=== PATIENT | female | born 1950 | race Caucasian/White ===

== ENCOUNTER 2021-07-15 10:39 | Inpatient (IN) | payer MEDICARE ==
[~2021-07-15] VITALS: Ht 157.5 cm; Wt 70.4 kg
[~2021-07-15 10:39] MED LIST: DEXA6TAB PO; INSU100I29 SQ; LISI10TA27 PO; NOVLG SQ
[2021-07-15] MEDS ORDERED: acetaminophen 325mg tablet PO STA (11:32)
[2021-07-15] MEDS ORDERED: ALBUTEROL INHALER 1 PUFF/90 MCG INHALER IH PRN ×2 (11:35→14:00)
[2021-07-15] MEDS ORDERED: dexamethasone inj 8 MG in normal saline 50ml IV soln 50 ML IV ONE (11:35)
[2021-07-15 11:47] LABS: BASOPHILS % (AUTO) 0.1 % (0-1); EOSINOPHILS % (AUTO) 0 % (0-6); HEMATOCRIT 41.1 % (35.0-45.0); HEMOGLOBIN 14.1 g/dl (12.0-16.0); LYMPHOCYTES # (AUTO) 0.2 X10'3 (1.1-4.8); LYMPHOCYTES % (AUTO) 1.9 % (21-51); MEAN CORPUSCULAR HGB CONC 34.4 g/dL (33.0-36.5); MONOCYTES # (AUTO) 0.4 X10'3 (0-0.9); MONOCYTES % (AUTO) 3.2 % (2-12); NEUTROPHILS % (AUTO) 94.8 % (42-75); PLATELET COUNT 339 X10'3 (140-440); RED BLOOD COUNT 4.28 X10'6 (4.20-5.60); RED CELL DISTRIBUTION WIDTH 12.6 % (11.5-14.5); WHITE BLOOD COUNT 11.6 X10'3 (4.5-11.0)
--- NOTE | 2021-07-15 11:49 | NUR ---
called pharmacy and spoke to yessica as per him its going to be 10-15 mins .will send tech in few mins.
[2021-07-15 12:01] LABS: ALANINE AMINOTRANSFERASE 28 U/L (12-78); ALBUMIN 2.7 G/DL (3.4-5.0); ALBUMIN/GLOBULIN RATIO 0.5 (1.1-1.5); ALKALINE PHOSPHATASE 82 IU/L (46-116); ANION GAP 11 (8-16); ASPARTATE AMINO TRANSFERASE 24 U/L (10-37); BILIRUBIN,TOTAL 0.7 MG/DL (0.1-1.0); BLOOD UREA NITROGEN 14 MG/DL (7-18); BUN/CREATININE RATIO 21.2 (6.6-38.0); CALCIUM 8.2 MG/DL (8.5-10.1); CHLORIDE 102 MMOL/L (99-107); CREATININE 0.66 MG/DL (0.40-0.90); GLUCOSE 268 MG/DL (70-104); POTASSIUM 4.3 MMOL/L (3.5-5.1); SODIUM 136 MMOL/L (135-145); TOTAL CARBON DIOXIDE 23.5 MMOL/L (24-32); TOTAL PROTEIN 7.7 G/DL (6.4-8.2); eGFR 89 ML/MIN
--- NOTE | 2021-07-15 12:09 | NUR ---
rt at bedside.
[2021-07-15 12:10] LABS: C-REACTIVE PROTEIN 15.72 MG/DL (0.0-0.5); D-DIMER 2.87 MG/L FEU (0-0.50)
[2021-07-15] MEDS ORDERED: aspirin 81mg tab.chew PO ONE (12:20)
[2021-07-15] MEDS ORDERED: enoxaparin 100mg/ml syringe SUBCUT ONE (12:20)
[2021-07-15 12:21] LABS: ABG BASE EXCESS 1.2 mmol/L (-2.0-2.0); ABG HCO3 23.5 mmol/L (22.0-26.0); ABG OXYGEN SATURATION 93.5 % (94-97); ABG PCO2 (T) 30.8 mmHg (32.0-45.0); ABG PO2 (T) 64.6 mmHg (75.0-100.0); ALLEN'S TEST POSITIVE; FCOHb 0.5 % (0.0-3.9); FLOW 6 L/min; FMetHb 0.3 % (0.0-1.5); FO2Hb 92.8 % (94-97); TOTAL HEMOGLOBIN 14.3 G/dl (12.0-16.0)
[2021-07-15] MEDS ORDERED: iohexol 350MG/ML 100ml bottle IV ONE (12:33)
[2021-07-15] MEDS ORDERED: DEXA6TAB PO (13:23)
[2021-07-15 13:56] LABS: ABG BASE EXCESS -1.3 mmol/L (-2.0-2.0); ABG HCO3 20.9 mmol/L (22.0-26.0); ABG OXYGEN SATURATION 93.7 % (94-97); ABG PCO2 (T) 28.4 mmHg (32.0-45.0); ABG PO2 (T) 66.7 mmHg (75.0-100.0); ALLEN'S TEST POSITIVE; FCOHb 0.1 % (0.0-3.9); FLOW 6 L/min; FMetHb 0.3 % (0.0-1.5); FO2Hb 93.3 % (94-97); TOTAL HEMOGLOBIN 14.3 G/dl (12.0-16.0)
[2021-07-15] MEDS ORDERED: ondansetron/PF 4mg/2ml inj IV PRN (14:00)
[2021-07-15] MEDS ORDERED: magnesium hydroxide 30ml (MOM) UD suspension PO PRN (14:00)
[2021-07-15] MEDS ORDERED: cefepime 2g/NS 100ml ADVANTAGE 100 ML IV ONE (14:00)
--- NOTE | 2021-07-15 14:07 | NUR ---
CALLED PHARMACY FOR MAXIPIME TO DELIVER TO ER. PER SHAYAN ITS GOING TO BE 10 MINS.
[2021-07-15] MEDS: normal saline 1000ml 1,000 ML IV SCH (14:37)
[2021-07-15] MEDS ORDERED: heparin 10,000 units/1 ML INJ IV ONE (16:45)
[2021-07-15] MEDS ORDERED: insulin Lispro (HumaLOG) vial - multi-dose SQ PRN (17:00)
--- NOTE | 2021-07-15 17:25 | NUR ---
DR GARCIA ART BEDSIDE ,STARTED WITH HEPARIN INFUSION ,AWARE OF PT VITALS AND ABOUT THE HEPARIN BOLUS AND IV INFUSION.
[2021-07-15 17:27] LABS: EOSINOPHILS % (AUTO) 0 % (0-6); HEMATOCRIT 40.2 % (35.0-45.0); LYMPHOCYTES # (AUTO) 0.2 X10'3 (1.1-4.8); MONOCYTES # (AUTO) 0.3 X10'3 (0-0.9); RED BLOOD COUNT 4.19 X10'6 (4.20-5.60)
[2021-07-15] MEDS: heparin 25,000 UNIT/250ml bag 250 ML IV SCH (17:27)
[2021-07-15 17:29] LABS: BASOPHILS % (AUTO) 0.2 % (0-1); HEMOGLOBIN 13.9 g/dl (12.0-16.0); LYMPHOCYTES % (AUTO) 2.3 % (21-51); MEAN CORPUSCULAR HEMOGLOBIN 33.2 PG (27.0-31.0); MEAN CORPUSCULAR HGB CONC 34.5 g/dL (33.0-36.5); MEAN PLATELET VOLUME 7.2 FL (7.4-10.4); MONOCYTES % (AUTO) 2.9 % (2-12); NEUTROPHILS # (AUTO) 9.2 X10'3 (1.8-7.7); NEUTROPHILS % (AUTO) 94.6 % (42-75); PLATELET COUNT 370 X10'3 (140-440); RED CELL DISTRIBUTION WIDTH 12.9 % (11.5-14.5); WHITE BLOOD COUNT 9.8 X10'3 (4.5-11.0)
[2021-07-15 17:40] LABS: PARTIAL THROMBOPLASTIN TIME 30 SECONDS (22-32)
--- NOTE | 2021-07-15 18:00 | NUR ---
Patient in room COVID 08. I have received report from shelley fowler and had the opportunity to ask questions and assume patient care. Addendum: 07/16/21 at 0156 by Natty Hernandez RN report recivied from ER nurse at 2200. patient recieved on unit at [id number]
--- NOTE | 2021-07-15 19:29 | NUR ---
PT PROVIDED MEAL TRAY AND REPORTS SHE IS VERY HUNGRY. REMAINS IN AIRBORN PRECAUTIONS. VENTURI MELY ON WITH 15 LITERS SUPP 02. PT ABLE TO GET UP TO [facility] INDEPENDANTLY.
[2021-07-15] MEDS ORDERED: enoxaparin 30mg/0.3ml syringe SQ SCH (20:00)
[2021-07-15] MEDS ORDERED: morphine 4 MG/ML inj SYRINge IV ONE (20:55)
[2021-07-15] MEDS: methylPREDNISolone sod succ 125mg/2ml vial IV SCH (21:00)
[2021-07-15] MEDS: docusate sod 100mg capsule PO SCH (21:00)
[2021-07-15] MEDS: acetaminophen 325mg tablet PO PRN (21:01)
[2021-07-15] MEDS: cefepime 2g/NS 100ml ADVANTAGE 100 ML IV SCH (21:01)
--- NOTE | 2021-07-15 21:08 | NUR ---
ACCIDENTAL WASTE OF MORPHINE DURING ATTEMPT TO GIVE TO PT. NEW ONE TIME ORDER PUT IN.
[2021-07-15] MEDS ORDERED: morphine 4 MG/ML inj SYRINge IM ONE (21:10)
--- NOTE | 2021-07-15 21:15 | NUR ---
PT GIVEN MSIV ONE TIME DOSE FOR 8 OUT OF 10 PAIN TO BACK FROM LYING ON THE GURNEY. PT ALSO GIVEN TYOLENOL AND HS MEDS. PT DUE FOR TROP AND PTT AT 2320. REMAINS ON HEPARIN GTT. BSC EMPTIED OF 2200 CC'S LIGHT YELLOW URINE.
[2021-07-16] VITALS: BP 146/86
--- NOTE | 2021-07-16 00:30 | NUR ---
blood sugar is 324mg/dl labs PTT drawn as ordered. sent to lab
[2021-07-16 02:00] VITALS: BP 147/73
[2021-07-16] MEDS: heparin 10,000 units/1 ML INJ IV PRN ×3 (03:03→19:41)
--- NOTE | 2021-07-16 03:05 | NUR ---
Dr. Herrera PTT lab results 31L, troponin 3.42H. EKG reads NSR vitals are stable. no c/o cp dizziness or cardiac distress. MD herrera orders to conitnue heparin drip per heparin protocol and cont. to monitor. Per heparin protocol and formulation: increase rate to 1040units/hr and to give 2800 uinit bolus. heparin signed off with isaak Agudelo RN. patient notified and educated about heparin dosing. no questions asked verbalized udnerstanding. nothing further to report.
[2021-07-16 06:00] VITALS: BP 157/78
[2021-07-16] MEDS ORDERED: insulin glargine (Lantus) pen - multi-dose SQ SCH (08:00)
[2021-07-16] MEDS: docusate sod 100mg capsule PO SCH ×2 (08:00→19:38)
[2021-07-16 08:33] LABS: BASOPHILS % (AUTO) 0.1 % (0-1); EOSINOPHILS % (AUTO) 0 % (0-6); HEMATOCRIT 41.3 % (35.0-45.0); LYMPHOCYTES # (AUTO) 0.3 X10'3 (1.1-4.8); LYMPHOCYTES % (AUTO) 2.9 % (21-51); MEAN CORPUSCULAR HEMOGLOBIN 32.9 PG (27.0-31.0); MEAN CORPUSCULAR HGB CONC 33.9 g/dL (33.0-36.5); MEAN CORPUSCULAR VOLUME 96.8 FL (78-98); MEAN PLATELET VOLUME 7.6 FL (7.4-10.4); MONOCYTES # (AUTO) 0.5 X10'3 (0-0.9); MONOCYTES % (AUTO) 5.2 % (2-12); NEUTROPHILS # (AUTO) 8.1 X10'3 (1.8-7.7); NEUTROPHILS % (AUTO) 91.8 % (42-75); PLATELET COUNT 405 X10'3 (140-440); RED BLOOD COUNT 4.27 X10'6 (4.20-5.60); RED CELL DISTRIBUTION WIDTH 12.9 % (11.5-14.5); WHITE BLOOD COUNT 8.8 X10'3 (4.5-11.0)
[2021-07-16 08:56] LABS: ALBUMIN 2.6 G/DL (3.4-5.0); ANION GAP 13 (8-16); BLOOD UREA NITROGEN 21 MG/DL (7-18); BUN/CREATININE RATIO 29.2 (6.6-38.0); CALCIUM 8.2 MG/DL (8.5-10.1); CHLORIDE 104 MMOL/L (99-107); CREATININE 0.72 MG/DL (0.40-0.90); GLUCOSE 295 MG/DL (70-104); POTASSIUM 4.6 MMOL/L (3.5-5.1); SODIUM 138 MMOL/L (135-145); TOTAL CARBON DIOXIDE 21.3 MMOL/L (24-32); eGFR 80 ML/MIN
[2021-07-16] MEDS: methylPREDNISolone sod succ 125mg/2ml vial IV SCH ×2 (09:16→19:46)
[2021-07-16] MEDS: cefepime 2g/NS 100ml ADVANTAGE 100 ML IV SCH ×2 (09:16→19:38)
[2021-07-16] MEDS: lisinopril 10 MG tablet PO SCH (09:22)
[2021-07-16 11:00] VITALS: BP 161/86
--- NOTE | 2021-07-16 12:23 | NUR ---
Respiratory paged: would like HF nasal cannula for Pt. in Room Covid 8B
--- NOTE | 2021-07-16 13:39 | NUR ---
Dr. Camacho paged: Radha Peck Covid 8B: do you want the hyper/hypoglycemic protocol or the sliding scale for insulin? Thanks Henrique [phone]
[2021-07-16] MEDS ORDERED: dextrose ORAL solution 15 GM/59 ML bottle PO PRN ×2 (14:45)
[2021-07-16] MEDS ORDERED: glucagon, human recombinant 1mg kit SUBCUT PRN (14:45)
[2021-07-16] MEDS ORDERED: dextrose 50%-water 50ml dispensing syringe IV PRN ×2 (14:45)
[2021-07-16] MEDS ORDERED: MESSAGE TO PHARMACY PO ONE (14:45)
[2021-07-16] MEDS: insulin Lispro (HumaLOG) vial - multi-dose SQ SCH ×3 (14:58→22:01)
[2021-07-16 15:00] VITALS: BP 159/56
--- NOTE | 2021-07-16 19:06 | NUR ---
Patient in room COVID 08. I have received report from Ghulam LEYVA and had the opportunity to ask questions and assume patient care.
[2021-07-16] MEDS: lactobacillus rhamnosus 10,000 MMU CELLS/CAPSULE PO SCH (19:38)
[2021-07-16] MEDS: heparin 25,000 UNIT/250ml bag 250 ML IV SCH (19:44)
[2021-07-16] MEDS: metoprolol tartrate 12.5mg (1/2 tablet) PO SCH (19:54)
[2021-07-16 20:00] VITALS: BP 152/68
[2021-07-16] MEDS: insulin glargine (Lantus) pen - multi-dose SQ SCH (22:00)
[2021-07-17] VITALS: BP 131/71
[2021-07-17] MEDS: heparin 25,000 UNIT/250ml bag 250 ML IV SCH ×3 (00:01→23:30)
[2021-07-17 02:13] LABS: BASOPHILS % (AUTO) 0 % (0-1); EOSINOPHILS % (AUTO) 0 % (0-6); HEMATOCRIT 38.2 % (35.0-45.0); HEMOGLOBIN 13.4 g/dl (12.0-16.0); LYMPHOCYTES # (AUTO) 0.4 X10'3 (1.1-4.8); LYMPHOCYTES % (AUTO) 3.9 % (21-51); MEAN CORPUSCULAR HEMOGLOBIN 33.1 PG (27.0-31.0); MEAN CORPUSCULAR HGB CONC 34.9 g/dL (33.0-36.5); MEAN CORPUSCULAR VOLUME 94.7 FL (78-98); MEAN PLATELET VOLUME 7.2 FL (7.4-10.4); MONOCYTES # (AUTO) 0.3 X10'3 (0-0.9); MONOCYTES % (AUTO) 3.1 % (2-12); NEUTROPHILS # (AUTO) 9.1 X10'3 (1.8-7.7); PLATELET COUNT 425 X10'3 (140-440); RED BLOOD COUNT 4.04 X10'6 (4.20-5.60); WHITE BLOOD COUNT 9.8 X10'3 (4.5-11.0)
[2021-07-17 02:35] LABS: ALBUMIN 2.2 G/DL (3.4-5.0); ANION GAP 9 (8-16); BLOOD UREA NITROGEN 18 MG/DL (7-18); CALCIUM 7.7 MG/DL (8.5-10.1); CHLORIDE 107 MMOL/L (99-107); CHOL/HDL RATIO 3.5 (0.00-4.99); CHOLESTEROL 145 MG/DL (0-200); CREATININE 0.53 MG/DL (0.40-0.90); GLUCOSE 193 MG/DL (70-104); HDL CHOLESTEROL 42 MG/DL (35-60); LDL CHOLESTEROL 85 MG/DL (50-100); POTASSIUM 4.2 MMOL/L (3.5-5.1); SODIUM 140 MMOL/L (135-145); TOTAL CARBON DIOXIDE 24.3 MMOL/L (24-32); TRIGLYCERIDES 87 MG/DL (20-135); eGFR > 90 ML/MIN
--- NOTE | 2021-07-17 06:44 | NUR ---
Problems reprioritized. Patient report given, questions answered & plan of care reviewed with Corina LEYVA.
[2021-07-17 07:00] VITALS: BP 152/87
[2021-07-17] MEDS: docusate sod 100mg capsule PO SCH ×2 (08:00→20:00)
[2021-07-17] MEDS: lactobacillus rhamnosus 10,000 MMU CELLS/CAPSULE PO SCH ×2 (08:00→21:25)
[2021-07-17] MEDS: aspirin 81mg tab.chew PO SCH (09:21)
[2021-07-17] MEDS: lisinopril 10 MG tablet PO SCH (09:21)
[2021-07-17] MEDS: cefepime 2g/NS 100ml ADVANTAGE 100 ML IV SCH ×2 (09:22→21:25)
[2021-07-17] MEDS: metoprolol tartrate 12.5mg (1/2 tablet) PO SCH ×2 (09:22→21:24)
[2021-07-17] MEDS: methylPREDNISolone sod succ 125mg/2ml vial IV SCH ×2 (09:22→21:25)
[2021-07-17] MEDS: insulin Lispro (HumaLOG) vial - multi-dose SQ SCH ×3 (09:44→19:10)
[2021-07-17 11:00] VITALS: BP 145/73
[2021-07-17] MEDS: normal saline 1000ml 1,000 ML IV SCH (14:00)
[2021-07-17 15:00] VITALS: BP 143/80
[2021-07-17 19:00] VITALS: BP 155/66
[2021-07-17] MEDS: mag hydrox/Alum hydrox/simeth 30ml oral suspension PO PRN (21:26)
[2021-07-17] MEDS: insulin glargine (Lantus) pen - multi-dose SQ SCH (21:51)
[2021-07-17 22:45] VITALS: BP 148/70
[2021-07-18] MEDS: heparin 25,000 UNIT/250ml bag 250 ML IV SCH ×2 (02:41→18:15)
[2021-07-18 04:00] VITALS: BP 151/80
[2021-07-18] MEDS: metoprolol tartrate 12.5mg (1/2 tablet) PO SCH ×2 (07:24→21:14)
[2021-07-18] MEDS: cefepime 2g/NS 100ml ADVANTAGE 100 ML IV SCH ×2 (07:24→21:14)
[2021-07-18] MEDS: methylPREDNISolone sod succ 125mg/2ml vial IV SCH ×2 (07:24→21:18)
[2021-07-18] MEDS: lactobacillus rhamnosus 10,000 MMU CELLS/CAPSULE PO SCH ×2 (07:25→21:14)
[2021-07-18] MEDS: lisinopril 10 MG tablet PO SCH (07:25)
[2021-07-18] MEDS: docusate sod 100mg capsule PO SCH ×2 (07:25→21:14)
[2021-07-18] MEDS: aspirin 81mg tab.chew PO SCH (07:25)
[2021-07-18 07:40] VITALS: BP 146/71
[2021-07-18 09:04] LABS: BASOPHILS % (AUTO) 0.2 % (0-1); EOSINOPHILS % (AUTO) 0 % (0-6); HEMATOCRIT 37.9 % (35.0-45.0); HEMOGLOBIN 12.8 g/dl (12.0-16.0); LYMPHOCYTES # (AUTO) 0.3 X10'3 (1.1-4.8); LYMPHOCYTES % (AUTO) 4.1 % (21-51); MEAN CORPUSCULAR HEMOGLOBIN 32.5 PG (27.0-31.0); MEAN CORPUSCULAR HGB CONC 33.8 g/dL (33.0-36.5); MEAN CORPUSCULAR VOLUME 96.1 FL (78-98); MEAN PLATELET VOLUME 7.6 FL (7.4-10.4); MONOCYTES # (AUTO) 0.2 X10'3 (0-0.9); MONOCYTES % (AUTO) 2.7 % (2-12); NEUTROPHILS # (AUTO) 7.8 X10'3 (1.8-7.7); PLATELET COUNT 397 X10'3 (140-440); RED BLOOD COUNT 3.95 X10'6 (4.20-5.60); RED CELL DISTRIBUTION WIDTH 12.8 % (11.5-14.5); WHITE BLOOD COUNT 8.3 X10'3 (4.5-11.0)
[2021-07-18 09:20] LABS: ANION GAP 5 (8-16); BLOOD UREA NITROGEN 17 MG/DL (7-18); BUN/CREATININE RATIO 27.4 (6.6-38.0); CALCIUM 7.5 MG/DL (8.5-10.1); CHLORIDE 109 MMOL/L (99-107); CREATININE 0.62 MG/DL (0.40-0.90); GLUCOSE 182 MG/DL (70-104); POTASSIUM 3.8 MMOL/L (3.5-5.1); SODIUM 142 MMOL/L (135-145); TOTAL CARBON DIOXIDE 28.2 MMOL/L (24-32); eGFR > 90 ML/MIN
--- NOTE | 2021-07-18 09:41 | NUR ---
Heparin gtt decreased from 1300 to 1200/units with jeremy fowler.
--- NOTE | 2021-07-18 10:00 | NUR ---
No available working computers to administer insulin. Multiple calls made to IT, no answer. Too close to 1100 glucose check and lunch, we reevaluate and continue to monitor.
[2021-07-18] MEDS: insulin Lispro (HumaLOG) vial - multi-dose SQ SCH ×2 (13:16→19:08)
--- NOTE | 2021-07-18 18:30 | NUR ---
Patients heparin gtt at 15ml/hr during shift change assessment, charge nurse aware
--- NOTE | 2021-07-18 18:58 | NUR ---
Patient in room COVID 08. I have received report from Sameera LEYVA and had the opportunity to ask questions and assume patient care.
[2021-07-18 19:00] VITALS: BP 119/73
[2021-07-18] MEDS: mag hydrox/Alum hydrox/simeth 30ml oral suspension PO PRN (19:09)
[2021-07-18] MEDS: insulin glargine (Lantus) pen - multi-dose SQ SCH (21:17)
[2021-07-18 23:00] VITALS: BP 115/73
[2021-07-19] MEDS ORDERED: heparin 25,000 UNIT/250ml bag 250 ML IV SCH (00:22)
[2021-07-19 03:00] VITALS: BP 135/65
[2021-07-19] MEDS: normal saline 1000ml 1,000 ML IV SCH (05:14)
--- NOTE | 2021-07-19 06:36 | NUR ---
Problems reprioritized. Patient report given, questions answered & plan of care reviewed with Sameera LEYVA.
[2021-07-19 07:19] VITALS: BP 159/70
[2021-07-19] MEDS: lactobacillus rhamnosus 10,000 MMU CELLS/CAPSULE PO SCH ×2 (07:26→19:31)
[2021-07-19] MEDS: cefepime 2g/NS 100ml ADVANTAGE 100 ML IV SCH ×2 (07:26→19:40)
[2021-07-19] MEDS: docusate sod 100mg capsule PO SCH ×2 (07:26→19:39)
[2021-07-19] MEDS: methylPREDNISolone sod succ 125mg/2ml vial IV SCH (07:26)
[2021-07-19] MEDS: aspirin 81mg tab.chew PO SCH (07:27)
[2021-07-19] MEDS: metoprolol tartrate 12.5mg (1/2 tablet) PO SCH ×2 (07:27→19:31)
[2021-07-19] MEDS: lisinopril 10 MG tablet PO SCH (07:27)
[2021-07-19 08:59] LABS: BASOPHILS % (AUTO) 0 % (0-1); EOSINOPHILS % (AUTO) 0 % (0-6); HEMOGLOBIN 12.8 g/dl (12.0-16.0); LYMPHOCYTES # (AUTO) 0.4 X10'3 (1.1-4.8); LYMPHOCYTES % (AUTO) 3.6 % (21-51); MEAN CORPUSCULAR HEMOGLOBIN 32.6 PG (27.0-31.0); MEAN CORPUSCULAR HGB CONC 33.8 g/dL (33.0-36.5); MEAN CORPUSCULAR VOLUME 96.7 FL (78-98); MEAN PLATELET VOLUME 7.4 FL (7.4-10.4); MONOCYTES # (AUTO) 0.2 X10'3 (0-0.9); MONOCYTES % (AUTO) 2.2 % (2-12); NEUTROPHILS # (AUTO) 9.9 X10'3 (1.8-7.7); NEUTROPHILS % (AUTO) 94.2 % (42-75); PLATELET COUNT 367 X10'3 (140-440); RED BLOOD COUNT 3.93 X10'6 (4.20-5.60); RED CELL DISTRIBUTION WIDTH 12.7 % (11.5-14.5); WHITE BLOOD COUNT 10.5 X10'3 (4.5-11.0)
[2021-07-19 09:10] LABS: ANION GAP 7 (8-16); BLOOD UREA NITROGEN 15 MG/DL (7-18); BUN/CREATININE RATIO 25.4 (6.6-38.0); C-REACTIVE PROTEIN 3.18 MG/DL (0.0-0.5); CALCIUM 7.4 MG/DL (8.5-10.1); CHLORIDE 108 MMOL/L (99-107); CREATININE 0.59 MG/DL (0.40-0.90); GLUCOSE 198 MG/DL (70-104); POTASSIUM 3.9 MMOL/L (3.5-5.1); SODIUM 142 MMOL/L (135-145); eGFR > 90 ML/MIN
[2021-07-19] MEDS: insulin Lispro (HumaLOG) vial - multi-dose SQ SCH ×4 (10:18→21:17)
[2021-07-19 15:00] VITALS: BP 150/65
[2021-07-19 18:00] VITALS: BP 136/73
[2021-07-19] MEDS: mag hydrox/Alum hydrox/simeth 30ml oral suspension PO PRN (19:31)
[2021-07-19] MEDS: methylPREDNISolone sod succ/PF 40mg inj. IV SCH (19:38)
[2021-07-19] MEDS: enoxaparin 40mg/0.4ml syringe SUBCUT SCH (19:41)
[2021-07-19] MEDS: acetaminophen 325mg tablet PO PRN (21:07)
[2021-07-19] MEDS: insulin glargine (Lantus) pen - multi-dose SQ SCH (21:20)
--- NOTE | 2021-07-20 00:37 | NUR ---
I have received report from GORDON Brasher and had the opportunity to ask questions and assume patient care.
[2021-07-20 02:00] VITALS: BP 136/73
--- NOTE | 2021-07-20 06:32 | NUR ---
Problems reprioritized. Patient report given, questions answered & plan of care reviewed with GORDON Shaffer.
[2021-07-20 07:00] VITALS: BP 129/68
[2021-07-20 08:28] LABS: BASOPHILS % (AUTO) 0.1 % (0-1); EOSINOPHILS % (AUTO) 0 % (0-6); HEMATOCRIT 36.4 % (35.0-45.0); HEMOGLOBIN 12.1 g/dl (12.0-16.0); LYMPHOCYTES # (AUTO) 0.4 X10'3 (1.1-4.8); LYMPHOCYTES % (AUTO) 3.8 % (21-51); MEAN CORPUSCULAR HEMOGLOBIN 32.4 PG (27.0-31.0); MEAN CORPUSCULAR HGB CONC 33.3 g/dL (33.0-36.5); MEAN CORPUSCULAR VOLUME 97.3 FL (78-98); MEAN PLATELET VOLUME 7.6 FL (7.4-10.4); MONOCYTES # (AUTO) 0.3 X10'3 (0-0.9); MONOCYTES % (AUTO) 3.2 % (2-12); NEUTROPHILS % (AUTO) 92.9 % (42-75); PLATELET COUNT 351 X10'3 (140-440); RED BLOOD COUNT 3.74 X10'6 (4.20-5.60); RED CELL DISTRIBUTION WIDTH 12.9 % (11.5-14.5); WHITE BLOOD COUNT 10.8 X10'3 (4.5-11.0)
[2021-07-20] MEDS: docusate sod 100mg capsule PO SCH ×2 (08:31→21:17)
[2021-07-20] MEDS: methylPREDNISolone sod succ/PF 40mg inj. IV SCH ×2 (08:31→21:16)
[2021-07-20] MEDS: lactobacillus rhamnosus 10,000 MMU CELLS/CAPSULE PO SCH ×2 (08:33→21:17)
[2021-07-20] MEDS: metoprolol tartrate 12.5mg (1/2 tablet) PO SCH ×2 (08:33→21:24)
[2021-07-20] MEDS: aspirin 81mg tab.chew PO SCH (08:33)
[2021-07-20] MEDS: lisinopril 10 MG tablet PO SCH (08:33)
[2021-07-20] MEDS: cefepime 2g/NS 100ml ADVANTAGE 100 ML IV SCH ×2 (08:34→21:18)
[2021-07-20] MEDS: enoxaparin 40mg/0.4ml syringe SUBCUT SCH ×2 (08:34→21:17)
[2021-07-20 09:16] LABS: ALBUMIN 1.9 G/DL (3.4-5.0); ANION GAP 2 (8-16); BLOOD UREA NITROGEN 17 MG/DL (7-18); BUN/CREATININE RATIO 25.8 (6.6-38.0); C-REACTIVE PROTEIN 2.03 MG/DL (0.0-0.5); CALCIUM 7.6 MG/DL (8.5-10.1); CHLORIDE 110 MMOL/L (99-107); CREATININE 0.66 MG/DL (0.40-0.90); GLUCOSE 103 MG/DL (70-104); POTASSIUM 4.3 MMOL/L (3.5-5.1); SODIUM 141 MMOL/L (135-145); eGFR 89 ML/MIN
--- NOTE | 2021-07-20 09:40 | NUR ---
Initial: Pt admit for acute respiratory failure with severe hypoxia, COVID-19 bilat PNA, and NSTEMI. Pt currently on a heart healthy CHO controlled diet and eating well with average 75-100% PO intake throughout most of LOS meeting estimated nutrient needs. LBM 07/19. No nutrition intervention warranted at this time. Will continue to follow. Recommendations: 1) Continue heart healthy CHO controlled diet 2) Monitor need for additional protein for satiety 3) Consider ONS if PO intake declines 4) Routine bowel care 5) Weekly scaled weights Addendum: 07/20/21 at [address] Amended: Links added.
[2021-07-20 11:00] VITALS: BP 147/53
[2021-07-20] MEDS: mag hydrox/Alum hydrox/simeth 30ml oral suspension PO PRN ×2 (11:09→21:43)
[2021-07-20] MEDS: insulin Lispro (HumaLOG) vial - multi-dose SQ SCH ×2 (13:14→19:06)
[2021-07-20 16:00] VITALS: BP 146/69
--- NOTE | 2021-07-20 18:34 | NUR ---
Patient in room COVID 08. I have received report from Deena LEYVA and had the opportunity to ask questions and assume patient care.
--- NOTE | 2021-07-20 18:35 | NUR ---
Problems reprioritized. Patient report given, questions answered & plan of care reviewed with GORDON ALLRED.
[2021-07-20 19:00] VITALS: BP 123/60
[2021-07-20 22:00] VITALS: BP 142/66
[2021-07-20] MEDS: insulin glargine (Lantus) pen - multi-dose SQ SCH (22:21)
--- NOTE | 2021-07-20 22:23 | NUR ---
RT. HAS LOW BLOOD SUGAR 48.PT. HAS BEEN THREADED.DR. SIERRA WAS NOTIFIED ,SHE WANTED TO HAVE ANABELA ON HOLD TO [facility].WE WILL CONTINUE WITH PT. CARE
[2021-07-21 03:00] VITALS: BP 145/79
--- NOTE | 2021-07-21 03:50 | NUR ---
Accu check check up at 0137 = 114.
--- NOTE | 2021-07-21 06:20 | NUR ---
Patient in room COVID 08B. I have received report from GORDON ALLRED and had the opportunity to ask questions and assume patient care.
--- NOTE | 2021-07-21 06:23 | NUR ---
Problems reprioritized. Patient report given, questions answered & plan of care reviewed with Deena LEYVA.
[2021-07-21 07:00] VITALS: BP 139/69
[2021-07-21] MEDS: cefepime 2g/NS 100ml ADVANTAGE 100 ML IV SCH ×2 (08:07→21:41)
[2021-07-21] MEDS: enoxaparin 40mg/0.4ml syringe SUBCUT SCH ×2 (08:07→21:43)
[2021-07-21] MEDS: methylPREDNISolone sod succ/PF 40mg inj. IV SCH ×2 (08:07→21:41)
[2021-07-21] MEDS: lisinopril 10 MG tablet PO SCH (08:08)
[2021-07-21] MEDS: lactobacillus rhamnosus 10,000 MMU CELLS/CAPSULE PO SCH ×2 (08:08→21:42)
[2021-07-21] MEDS: metoprolol tartrate 12.5mg (1/2 tablet) PO SCH ×2 (08:09→21:50)
[2021-07-21] MEDS: docusate sod 100mg capsule PO SCH ×2 (08:09→21:42)
[2021-07-21] MEDS: aspirin 81mg tab.chew PO SCH (08:09)
[2021-07-21] MEDS: insulin Lispro (HumaLOG) vial - multi-dose SQ SCH ×3 (08:26→19:11)
[2021-07-21 11:00] VITALS: BP 147/59
[2021-07-21] MEDS: normal saline 1000ml 1,000 ML IV SCH (11:00)
[2021-07-21 14:00] VITALS: BP 141/70
[2021-07-21 18:00] VITALS: BP 142/68
--- NOTE | 2021-07-21 18:31 | NUR ---
Problems reprioritized. Patient report given, questions answered & plan of care reviewed with GORDON ALLRED.
--- NOTE | 2021-07-21 18:32 | NUR ---
Patient in room COVID 08. I have received report from Deena LEYVA and had the opportunity to ask questions and assume patient care.
[2021-07-21] MEDS: mag hydrox/Alum hydrox/simeth 30ml oral suspension PO PRN (19:15)
[2021-07-21] MEDS: insulin glargine (Lantus) pen - multi-dose SQ SCH (21:00)
[2021-07-21 22:00] VITALS: BP 133/64
[2021-07-22 02:00] VITALS: BP 133/65
[2021-07-22 06:00] VITALS: BP 139/69
--- NOTE | 2021-07-22 06:40 | NUR ---
Problems reprioritized. Patient report given, questions answered & plan of care reviewed with Jo LEYVA.
--- NOTE | 2021-07-22 06:52 | NUR ---
Patient in room COVID 08B. I have received report from GORDON ALLRED and had the opportunity to ask questions and assume patient care.
[2021-07-22] MEDS: cefepime 2g/NS 100ml ADVANTAGE 100 ML IV SCH (08:26)
[2021-07-22] MEDS: methylPREDNISolone sod succ/PF 40mg inj. IV SCH ×2 (08:26→20:54)
[2021-07-22] MEDS: docusate sod 100mg capsule PO SCH ×2 (08:26→20:55)
[2021-07-22] MEDS: lisinopril 10 MG tablet PO SCH (08:27)
[2021-07-22] MEDS: metoprolol tartrate 12.5mg (1/2 tablet) PO SCH ×2 (08:27→20:00)
[2021-07-22] MEDS: atorvastatin 20mg tablet PO SCH (08:27)
[2021-07-22] MEDS: lactobacillus rhamnosus 10,000 MMU CELLS/CAPSULE PO SCH ×2 (08:27→20:55)
[2021-07-22] MEDS: aspirin 81mg tab.chew PO SCH (08:27)
[2021-07-22] MEDS: enoxaparin 40mg/0.4ml syringe SUBCUT SCH ×2 (08:28→20:55)
[2021-07-22] MEDS: insulin Lispro (HumaLOG) vial - multi-dose SQ SCH ×3 (08:34→19:11)
[2021-07-22 10:00] VITALS: BP 111/60
[2021-07-22] MEDS: nystatin 500,000 unit/5ML UD oral suspension PO SCH ×2 (13:58→20:55)
[2021-07-22 14:00] VITALS: BP 136/60
[2021-07-22 18:00] VITALS: BP 127/56
--- NOTE | 2021-07-22 18:20 | NUR ---
Patient in room COVID 08. I have received report from Jo LEYVA and had the opportunity to ask questions and assume patient care.
--- NOTE | 2021-07-22 18:26 | NUR ---
Problems reprioritized. Patient report given, questions answered & plan of care reviewed with GORDON ALLRED.
[2021-07-22] MEDS: mag hydrox/Alum hydrox/simeth 30ml oral suspension PO PRN (20:28)
[2021-07-22 22:00] VITALS: BP 132/61
[2021-07-22] MEDS: insulin glargine (Lantus) pen - multi-dose SQ SCH (22:00)
[2021-07-23 02:00] VITALS: BP 134/68
[2021-07-23 06:00] VITALS: BP 158/73
--- NOTE | 2021-07-23 06:27 | NUR ---
Problems reprioritized. Patient report given, questions answered & plan of care reviewed with Sissy LEYVA.
[2021-07-23] MEDS: methylPREDNISolone sod succ/PF 40mg inj. IV SCH ×2 (09:38→19:57)
[2021-07-23] MEDS: aspirin 81mg tab.chew PO SCH (09:38)
[2021-07-23] MEDS: docusate sod 100mg capsule PO SCH ×2 (09:39→19:57)
[2021-07-23] MEDS: lisinopril 10 MG tablet PO SCH (09:39)
[2021-07-23] MEDS: atorvastatin 20mg tablet PO SCH (09:39)
[2021-07-23] MEDS: nystatin 500,000 unit/5ML UD oral suspension PO SCH ×3 (09:40→20:00)
[2021-07-23] MEDS: metoprolol tartrate 12.5mg (1/2 tablet) PO SCH ×2 (09:40→19:57)
[2021-07-23] MEDS: enoxaparin 40mg/0.4ml syringe SUBCUT SCH ×2 (09:41→19:58)
[2021-07-23] MEDS: insulin Lispro (HumaLOG) vial - multi-dose SQ SCH ×3 (09:59→19:53)
[2021-07-23 10:00] VITALS: BP 122/65
[2021-07-23] MEDS: lactobacillus rhamnosus 10,000 MMU CELLS/CAPSULE PO SCH ×2 (13:44→19:57)
[2021-07-23] MEDS: normal saline 1000ml 1,000 ML IV SCH (14:45)
[2021-07-23 18:00] VITALS: BP 128/80
--- NOTE | 2021-07-23 18:46 | NUR ---
Problems reprioritized. Patient report given, questions answered & plan of care reviewed with Libby LEYVA.
[2021-07-23] MEDS: insulin glargine (Lantus) pen - multi-dose SQ SCH (21:50)
[2021-07-23 22:00] VITALS: BP 128/58
[2021-07-24 02:00] VITALS: BP 115/51
--- NOTE | 2021-07-24 07:36 | NUR ---
Problems reprioritized. Patient report given, questions answered & plan of care reviewed with GORDON CROSS.
[2021-07-24 09:03] VITALS: BP 139/58
--- NOTE | 2021-07-24 09:12 | NUR ---
Reassessment: Pt continues eating well with 100% PO intake since last RD assessment 07/20. LBM 07/23. No nutrition intervention implemented at this time. Will continue to follow. Recommendations: 1) Continue heart healthy CHO controlled diet 2) Monitor need for additional protein for satiety 3) Routine bowel care 4) Weekly scaled weights Addendum: 07/24/21 at [address] Amended: Links added.
[2021-07-24] MEDS: insulin Lispro (HumaLOG) vial - multi-dose SQ SCH ×2 (09:35→13:31)
[2021-07-24] MEDS: enoxaparin 40mg/0.4ml syringe SUBCUT SCH (09:39)
[2021-07-24] MEDS: methylPREDNISolone sod succ/PF 40mg inj. IV SCH (09:39)
[2021-07-24] MEDS: atorvastatin 20mg tablet PO SCH (09:40)
[2021-07-24] MEDS: metoprolol tartrate 12.5mg (1/2 tablet) PO SCH (09:40)
[2021-07-24] MEDS: nystatin 500,000 unit/5ML UD oral suspension PO SCH ×2 (09:40→13:09)
[2021-07-24] MEDS: lactobacillus rhamnosus 10,000 MMU CELLS/CAPSULE PO SCH (09:40)
[2021-07-24] MEDS: aspirin 81mg tab.chew PO SCH (09:40)
[2021-07-24] MEDS: docusate sod 100mg capsule PO SCH (09:40)
[2021-07-24] MEDS: lisinopril 10 MG tablet PO SCH (09:42)
[2021-07-24 11:20] VITALS: BP 121/65
--- NOTE | 2021-07-24 12:17 | NUR ---
O2 Sat at rest on room air:_93__% If below 89%: Recovery O2 Sat at rest on ___LPM:___%:___% via (mask/nasal cannula, etc..) No further documentation is necessary. If O2 Sat did not drop below 89% on room air,ambulate patient on room air. O2 Sat while ambulating on room air:_89__% Recovery O2 Sat while ambulating on ___LPM:__92_% No further documentation is necessary. If patient does not drop below 89% while ambulating, he/she does not qualify for home O2.
[2021-07-24] MEDS ORDERED: DEXA6TAB PO (12:58)
[2021-07-24] MEDS ORDERED: ASPI81TA53 PO (12:58)
[2021-07-24] MEDS ORDERED: ALBU6.7H9 IH (12:58)
[2021-07-24] MEDS ORDERED: ATOR20TA66 PO (12:58)
[2021-07-24] MEDS ORDERED: LOP12.5T PO (12:58)
[2021-07-24] MEDS ORDERED: APIX5TAB3 PO (12:59)
== END 2021-07-24 15:25 | disposition home or self-care (01) | DRG 177 ==
LOC: ER 10:40 → ED HOLD 14:01 → COVID IP 22:35
PROVIDERS: ADMIT Family Medicine; ATTEND Family Medicine
PROC: B32T1ZZ Computerized Tomography (CT Scan) of Left Pulmonary Artery using Low Osmolar Contrast (ICD-10-PCS; 2021-07-15)
PROC: B3201ZZ Computerized Tomography (CT Scan) of Thoracic Aorta using Low Osmolar Contrast (ICD-10-PCS; 2021-07-15)
PROC: B32S1ZZ Computerized Tomography (CT Scan) of Right Pulmonary Artery using Low Osmolar Contrast (ICD-10-PCS; 2021-07-15)
PROC: 5A0955A Assistance with Respiratory Ventilation, Greater than 96 Consecutive Hours, High Flow/Velocity Cannula (ICD-10-PCS; principal; 2021-07-16)
DX: U07.1 COVID-19 (principal); J96.01 Acute respiratory failure with hypoxia; I21.A1 Myocardial infarction type 2; I50.21 Acute systolic (congestive) heart failure; J12.82 Pneumonia due to coronavirus disease 2019; J15.9 Unspecified bacterial pneumonia; J44.0 Chronic obstructive pulmonary disease with (acute) lower respiratory infection; J44.1 Chronic obstructive pulmonary disease with (acute) exacerbation; E11.9 Type 2 diabetes mellitus without complications; I11.0 Hypertensive heart disease with heart failure; Z79.01 Long term (current) use of anticoagulants; Z79.4 Long term (current) use of insulin; Z79.82 Long term (current) use of aspirin; Z79.899 Other long term (current) drug therapy; Z88.1 Allergy status to other antibiotic agents; Z90.710 Acquired absence of both cervix and uterus; Z88.8 Allergy status to other drugs, medicaments and biological substances; Z82.49 Family history of ischemic heart disease and other diseases of the circulatory system
CPT/HCPCS: 36415; 36600; 71045; 71275; 80048; 80053; 80061; 82803; 82948; 83880; 84145; 84484; 85018; 85025; 85379; 85610; 85730; 86140; 93005; 93306; 94760; 96365; 96372; 97116; 97161; 97530; 99291; G0378; J0692; J1100; J1644; J1650; J1815; J2270; J2920; J2930; J7030; Q9967